=== PATIENT | female | born 1990 | race Caucasian/White ===

== ENCOUNTER 2017-08-09 22:41 | Emergency (ER) | payer SELFPAY ==
[~2017-08-09] VITALS: Ht 162.6 cm; Wt 84.6 kg
[~2017-08-09 22:41] MED LIST: CEPHALEXIN500 MG PO; FISH OIL1000 MG PO; PRENATA3 OR
[2017-08-09 23:37] LABS: INFLUENZA A NONE DETECTED (NONE DETECT); INFLUENZA B NONE DETECTED (NONE DETECT)
[2017-08-09] MEDS ORDERED: ZPAK PO (23:42)
[2017-08-09] MEDS ORDERED: ROBITUSSIN AC10 ML PO (23:42)
[2017-08-10 00:38] VITALS: BP 119/86
== END 2017-08-10 00:38 | disposition home or self-care (01) | DRG 153 ==
LOC: ED 22:41
PROVIDERS: Emergency Medicine
DX: J04.0 Acute laryngitis (principal); I88.9 Nonspecific lymphadenitis, unspecified

== ENCOUNTER 2018-02-07 19:15 | Emergency (ER) | payer OTHER ==
[~2018-02-07] VITALS: Ht 162.6 cm; Wt 82.4 kg
[~2018-02-07 19:15] MED LIST changes: +ROBITUSSIN AC10 ML PO; +ZPAK PO
[2018-02-07 20:32] LABS: HEMATOCRIT 31.4 % (37.0-47.0); HEMOGLOBIN 10.1 g/dl (12.0-16.0); IMMATURE GRANULOCYTES 0.4 % (0.0-5.0); MEAN CELL VOLUME 87.7 fL CALC (80.0-100.0); MEAN CORPUSCULAR HGB 28.2 pG CALC (26.0-32.0); MEAN CORPUSCULAR HGB CONC 32.2 g/L CALC (32.0-36.0); NEUT# 5.36 thou/uL (2.00-7.15); RED BLOOD COUNT 3.58 mill/uL (4.20-5.60); RED CELL DISTRI WIDTH 14.3 % (11.5-15.5)
[2018-02-07 21:13] LABS: ALBUMIN 4.1 g/dL (3.2-5.0); ALKALINE PHOSPHATASE 47 u/l (38-126); ANION GAP 15 (6-22 (CALC)); BILIRUBIN, TOTAL 0.3 mg/dL (0.0-1.4); BUN 7 mg/dL (7-17); BUN/CREATININE RATIO 12 (12-20 (CALC)); CARBON DIOXIDE 24 mmol/l (22-30); CHLORIDE 106 mmol/l (95-108); CREATININE 0.6 mg/dL (0.5-1.0); GFR > 60 ML/MIN (>=60 (CALC)); GFR FOR AFR.AMER. > 60 ML/MIN (>=60 (CALC)); SGOT/AST 20 u/l (14-36); SGPT/ALT 24 u/l (9-52); SODIUM 141 mmol/l (137-146); TOTAL PROTEIN 7.1 g/dL (6.3-8.2)
[2018-02-07 21:30] LABS: BETA-HCG, QUANT(RESULT NUMBER) 7172 mIU/mL
[2018-02-08 01:00] VITALS: BP 97/66
== END 2018-02-08 00:25 ==
LOC: ED 19:15
PROVIDERS: Family Medicine
DX: O03.4 Incomplete spontaneous abortion without complication (principal)

== ENCOUNTER 2019-04-08 08:57 | Emergency (ER) | payer OTHER ==
[~2019-04-08] VITALS: Ht 162.6 cm; Wt 80.0 kg
[2019-04-08] MEDS ORDERED: PRENATA3 PO (09:03)
[2019-04-08] MEDS ORDERED: AMOXICILLIN500 M2 PO (09:10)
[2019-04-08 09:24] VITALS: BP 118/70
== END 2019-04-08 09:24 | disposition home or self-care (01) ==
LOC: ED 08:57
DX: O99.511 Diseases of the respiratory system complicating pregnancy, first trimester (principal); J02.9 Acute pharyngitis, unspecified; Z3A.09 9 weeks gestation of pregnancy

== ENCOUNTER 2022-09-15 15:21 | Emergency (ER) | payer OTHER ==
[~2022-09-15] VITALS: Ht 162.6 cm; Wt 99.7 kg
[~2022-09-15 15:21] MED LIST changes: +AMOXICILLIN500 M2 PO; +PRENATA3 PO
[2022-09-15 15:30] VITALS: BP 110/64
[2022-09-15 15:45] VITALS: BP 105/65
[2022-09-15 16:00] VITALS: BP 119/68
[2022-09-15 16:03] LABS: BASO% 0.1 % (0-3); EOS% 0.1 % (0-8); HEMATOCRIT 36.2 % (37.0-47.0); HEMOGLOBIN 11.2 g/dl (12.0-16.0); IMMATURE GRANULOCYTES 0.2 % (0.0-5.0); LYMPH% 7.2 % (15-41); MEAN CELL VOLUME 84.4 fL CALC (80.0-100.0); MEAN CORPUSCULAR HGB 26.1 pG CALC (26.0-32.0); MEAN CORPUSCULAR HGB CONC 30.9 g/dL CAL (32.0-36.0); MONO% 6.9 % (2-13); NEUT# 14.25 thou/uL (2.00-7.15); NEUT% 85.5 % (42-76); RED BLOOD COUNT 4.29 mill/uL (4.20-5.60); RED CELL DISTRI WIDTH 14.1 % (11.5-15.5)
[2022-09-15 16:24] LABS: ALBUMIN 4.4 g/dL (3.2-5.0); ANION GAP 14 (6-22 (CALC)); BUN 13 mg/dL (7-17); BUN/CREATININE RATIO 16 (12-20 (CALC)); CARBON DIOXIDE 22 mmol/l (22-30); CHLORIDE 106 mmol/l (95-108); CREATININE 0.8 mg/dL (0.5-1.0); GFR FOR AFR.AMER. > 60 ML/MIN (>=60 (CALC)); GFR OTHER RACES > 60 ML/MIN (>=60 (CALC)); SODIUM 137 mmol/l (137-146); TOTAL PROTEIN 7.7 g/dL (6.3-8.2)
[2022-09-15 16:28] LABS: ALKALINE PHOSPHATASE 78 u/l (38-126); BILIRUBIN, TOTAL 0.6 mg/dL (0.02-1.3); SGOT/AST 41 u/l (14-36)
[2022-09-15] MEDS ORDERED: ZOFRAN4 MG/TAB PO (17:56)
[2022-09-15] MEDS ORDERED: CEPHALEXIN500 M1 PO (17:56)
[2022-09-15 18:53] VITALS: BP 119/68
== END 2022-09-15 19:02 | disposition home or self-care (01) ==
LOC: ED 15:21
PROVIDERS: Family Medicine
DX: N61.0 Mastitis without abscess (principal); N63.21 Unspecified lump in the left breast, upper outer quadrant; R53.1 Weakness; R42 Dizziness and giddiness; Z20.822 Contact with and (suspected) exposure to COVID-19